=== PATIENT | male | born 2000 | race Caucasian/White ===

== ENCOUNTER 2022-02-21 10:44 | Inpatient (IN) ==
[2022-02-21] MEDS ORDERED: ALBUT/IPRATROP 3MG/0.5MG NEB 3 ML VIAL NEB STA (11:19)
[2022-02-21] MEDS ORDERED: ALBUTEROL 0.083% NEBU SOLN 3 ML VIAL NEB STA (11:25)
--- NOTE | 2022-02-21 11:25 | Emergency Department Note ---
History of Present Illness General Chief complaint: Congestion Stated complaint: COUGH, CONGESTED Time Seen by Provider: 02/21/22 11:10 History of Present Illness Maximum Pain Intensity: 0 This is a 21-year-old male that presents to the emergency department via private vehicle with complaints of "cough, congested". Patient notes that about 2-1/2 weeks ago he began with a cough. He notes that he was sick at that time and then presented to [facility]. He was diagnosed with pneumonia and prescribed amoxicillin. He was also given Tessalon Perles and albuterol inhaler. 3 to 4 days pasted since that visit and he notes continuation of symptoms therefore prompting a visit here to the emergency department. He was seen here on 02/10. He states that he was diagnosed with a viral URI/bronchitis and started on steroids as well as an inhaler. He was using this and feeling well. Then a few days ago he notes return of symptoms to include congestion, cough and since yesterday now notes pain to the right lateral inferior rib region that is worse with a deep breath/cough. Patient denies any known trauma or injury. No sore throat. Home Medications Medication Instructions Recorded Confirmed Type No Known Home Medications 02/21/22 02/21/22 History Allergies Allergy/AdvReac Type Severity Reaction Status Date / Time No Known Allergies Allergy Verified 02/21/22 14:49 Past Med/Surg History Medical History No significant past medical history Surgical History Hx of shoulder surgery Social History Smoking Status: Never smoker Preferred Language: Occitan marital status: Single current occupational status: student Feels Safe at Home: Yes Review of Systems A total of 10 systems reviewed and were otherwise negative Physical Exam Vital Signs Vital Signs - 24 hr 02/21/22 11:03 02/21/22 11:19 02/21/22 11:44 Temperature 37.3 C Temperature Source Oral Pulse Rate 104 H 94 H 96 H Pulse Rate [Apical] Pulse Rate [Exercises] Pulse Rate [Recovery] Pulse Rate [Resting] Pulse Rate from SpO2 Sensor 95 H Pulse Rhythm Regular Pulse Rhythm [Apical] Pulse Strength [Apical] Respiratory Rate 18 19 25 H Respiratory Rate [Exercises] Respiratory Rate [Recovery] Respiratory Rate [Resting] Respiratory Effort / Characteristics Non-Labored Spontaneous Respiratory Depth Normal Respiratory Pattern Regular Blood Pressure 122/68 Blood Pressure [Left Arm] Blood Pressure Mean 86 Blood Pressure Mean [Left Arm] Blood Pressure Position Sitting Blood Pressure Position [Left Arm] Pulse Oximetry 99 96 97 Pulse Oximetry [Exercises] Pulse Oximetry [Recovery] Pulse Oximetry [Resting] Oxygen Delivery Method Room Air Room Air Sepsis Recent Fever Within 48 Hours No Sepsis New/Unexplained Change in Mental Status N/A Sepsis Action Taken by Nursing No Action Required 02/21/22 10:44 02/21/22 12:00 02/21/22 12:00 Temperature Temperature Source Pulse Rate 94 H Pulse Rate [Apical] 98 H Pulse Rate [Exercises] Pulse Rate [Recovery] Pulse Rate [Resting] Pulse Rate from SpO2 Sensor 95 H Pulse Rhythm Pulse Rhythm [Apical] Regular Pulse Strength [Apical] Normal Respiratory Rate 19 19 Respiratory Rate [Exercises] Respiratory Rate [Recovery] Respiratory Rate [Resting] Respiratory Effort / Characteristics Non-Labored Respiratory Depth Normal Respiratory Pattern Regular Blood Pressure 116/71 Blood Pressure [Left Arm] 116/71 Blood Pressure Mean 86 Blood Pressure Mean [Left Arm] 86 Blood Pressure Position Blood Pressure Position [Left Arm] Lying Pulse Oximetry 98 100 Pulse Oximetry [Exercises] Pulse Oximetry [Recovery] Pulse Oximetry [Resting] Oxygen Delivery Method Room Air Sepsis Recent Fever Within 48 Hours Sepsis New/Unexplained Change in Mental Status Sepsis Action Taken by Nursing 02/21/22 12:30 02/21/22 12:30 02/21/22 13:35 Temperature Temperature Source Pulse Rate 95 H Pulse Rate [Apical] Pulse Rate [Exercises] 114 H Pulse Rate [Recovery] 96 H Pulse Rate [Resting] 111 H Pulse Rate from SpO2 Sensor 97 H Pulse Rhythm Pulse Rhythm [Apical] Pulse Strength [Apical] Respiratory Rate 18 Respiratory Rate [Exercises] 27 H Respiratory Rate [Recovery] 24 Respiratory Rate [Resting] 26 H Respiratory Effort / Characteristics Respiratory Depth Respiratory Pattern Blood Pressure 127/70 Blood Pressure [Left Arm] Blood Pressure Mean 89 Blood Pressure Mean [Left Arm] Blood Pressure Position Blood Pressure Position [Left Arm] Pulse Oximetry 97 Pulse Oximetry [Exercises] 96 Pulse Oximetry [Recovery] 95 Pulse Oximetry [Resting] 96 Oxygen Delivery Method Room Air Sepsis Recent Fever Within 48 Hours Sepsis New/Unexplained Change in Mental Status Sepsis Action Taken by Nursing 02/21/22 13:22 02/21/22 13:22 02/21/22 13:30 Temperature Temperature Source Pulse Rate 98 H Pulse Rate [Apical] Pulse Rate [Exercises] Pulse Rate [Recovery] Pulse Rate [Resting] Pulse Rate from SpO2 Sensor Pulse Rhythm Pulse Rhythm [Apical] Pulse Strength [Apical] Respiratory Rate 18 Respiratory Rate [Exercises] Respiratory Rate [Recovery] Respiratory Rate [Resting] Respiratory Effort / Characteristics Respiratory Depth Respiratory Pattern Blood Pressure 117/71 124/71 Blood Pressure [Left Arm] Blood Pressure Mean 86 88 Blood Pressure Mean [Left Arm] Blood Pressure Position Blood Pressure Position [Left Arm] Pulse Oximetry Pulse Oximetry [Exercises] Pulse Oximetry [Recovery] Pulse Oximetry [Resting] Oxygen Delivery Method Sepsis Recent Fever Within 48 Hours Sepsis New/Unexplained Change in Mental Status Sepsis Action Taken by Nursing 02/21/22 13:30 02/21/22 14:00 02/21/22 14:00 Temperature Temperature Source Pulse Rate 92 H 96 H Pulse Rate [Apical] Pulse Rate [Exercises] Pulse Rate [Recovery] Pulse Rate [Resting] Pulse Rate from SpO2 Sensor Pulse Rhythm Pulse Rhythm [Apical] Pulse Strength [Apical] Respiratory Rate 18 20 Respiratory Rate [Exercises] Respiratory Rate [Recovery] Respiratory Rate [Resting] Respiratory Effort / Characteristics Respiratory Depth Respiratory Pattern Blood Pressure 119/69 Blood Pressure [Left Arm] Blood Pressure Mean 85 Blood Pressure Mean [Left Arm] Blood Pressure Position Blood Pressure Position [Left Arm] Pulse Oximetry 97 96 Pulse Oximetry [Exercises] Pulse Oximetry [Recovery] Pulse Oximetry [Resting] Oxygen Delivery Method Sepsis Recent Fever Within 48 Hours Sepsis New/Unexplained Change in Mental Status Sepsis Action Taken by Nursing VITAL SIGNS - Vital signs and nursing notes were reviewed. Stable and afebrile. GENERAL -21-year-old male appearing his stated age who is in no acute distress. Communicates well with provider and answers questions appropriately. SKIN - Without rashes. No meningeal or petechial rash. HEAD - NC/AT. EYES - PERRL with EOMI bilaterally. Sclera anicteric. EARS - No deformities of external structures noted on gross examination bilaterally. No pain elicited with palpation of the tragus bilaterally. External auditory canals without discharge or otorrhea. Tympanic membranes pearly chan without retraction or bulging. No fluid or purulent material visualized behind the TM. Handle of malleus, umbo, cone of light, pars tensa/flaccid all easily visualized. NOSE - Midline and without cyanosis. No epistaxis or purulent drainage noted. Septum midline without deviation or septal hematoma noted. MOUTH/OROPHARYNX - Without perioral cyanosis. Buccal mucosa pink and moist and without leukoplakia. Tongue midline with equal elevation of palate bilaterally. No tonsillar hypertrophy, erythema, or exudates noted. Good dentition noted. NECK - Neck with FROM. No nuchal rigidity. LUNGS - Chest wall symmetric without accessory muscle use, intercostals retractions, or central cyanosis. Normal vesicular breath sounds CTA B/L. No wheezes, rales, or rhonchi appreciated. CARDIAC - RRR with S1/S2. No murmur, rubs, or gallops appreciated. ABDOMEN - Abdominal contour normal without pulsations or visible masses. BS normoactive all four quadrants. No tenderness, palpable masses, hepatosplenomegaly, or ascites noted. EXTREMITIES - No clubbing or peripheral cyanosis. +5/5 strength noted in UE/LE bilaterally. NEUROLOGIC - Cranial nerves II through XII grossly intact. PSYCH - A&O, and cooperates fully with examiner. Pt is very pleasant and interacts well with examiner. Course Administered Medications Discontinued Medications Albuterol (Albut/Ipratrop 3mg/0.5mg Neb 3 Ml Vial) 3 ml NEB NOW STA; Protocol Stop: 02/21/22 11:20 Last Admin: 02/21/22 11:29 Dose: Not Given Documented By: ROLAND Albuterol (Albuterol 0.083% Nebu Soln 3 Ml Vial) 2.5 mg NEB NOW STA; Protocol Stop: 02/21/22 11:26 Last Admin: 02/21/22 11:35 Dose: 2.5 mg Documented By: ROLAND Ampicillin Sodium/Sulbactam Sodium 3,000 mg/ Sodium Chloride 108 mls @ 200 mls/hr IV NOW STA; Protocol Stop: 02/21/22 15:19 Last Admin: 02/21/22 15:42 Dose: 200 mls/hr Documented By: ROLAND Ioversol (Optiray 320 500ml) 107 ml IV ONCE ONE Stop: 02/21/22 13:03 Last Admin: 02/21/22 13:03 Dose: 107 ml Documented By: CLAU Medical Decision Making Laboratory Data Result diagrams: 02/21/22 11:44 02/21/22 11:44 Lab Results 02/21/22 02/21/22 02/21/22 Range/Units 11:44 11:44 11:44 WBC 18.67 H (4.8-10.8) K/ul RBC 4.57 L (4.63-6.08) M/uL Hgb 14.6 (14.0-18.0) g/dl Hct 42.0 (40.1-51.0) % MCV 91.9 (80.0-100.0) fL MCH 31.9 (25.0-34.0) pg MCHC 34.8 (32.0-36.0) g/dL RDW Std Deviation 41.4 (36.4-46.3) fL RDW Coeff of Kj 12.3 (11.5-14.5) % Plt Count 321 (130-400) K/uL MPV 9.2 L (9.4-12.4) fL Immature Gran % (Auto) 0.6 % Neut % (Auto) 86.7 % Lymph % (Auto) 7.3 % Charles % (Auto) 5.1 % Eos % (Auto) 0.1 % Baso % (Auto) 0.2 % Neut # (Auto) 16.19 H (1.4-6.5) K/uL Lymph # (Auto) 1.36 (1.2-3.4) K/uL Charles # (Auto) 0.95 H (0.24-0.82) K/uL Eos # (Auto) 0.02 (0-0.50) K/uL Baso # (Auto) 0.04 (0-0.2) K/uL Immature Gran # (Auto) 0.11 H (0.00-0.02) K/uL PT 11.8 (9.0-12.0) Seconds INR 1.1 (0.9-1.1) APTT 35.4 H (21.0-31.0) Seconds PTT Ratio 1.3 Sodium 135 L (136-145) mmol/L Potassium 4.1 (3.5-5.1) mmol/L Chloride 99 (98-107) mmol/L Carbon Dioxide 29 (21-32) mmol/L Anion Gap 7 (3-11) BUN 10 (6-23) mg/dl Creatinine 0.89 (0.6-1.4) mg/dl Est Cr Clr Drug Dosing 146.5 ml/min Est GFR ( Amer) 143.7 ml/min Est GFR (Non-Af Amer) 124.0 ml/min BUN/Creatinine Ratio 11.2 (10-20) Glucose 104 H (70-99(Fasting)) mg/dl Calcium 9.6 (8.5-10.1) mg/dl Total Bilirubin 0.8 (0.2-1.0) mg/dl AST 21 (13-39) U/L ALT 30 (7-52) U/L Alkaline Phosphatase 81 (34-104) U/L Troponin I High Sens 3.6 (0-20) pg/ml Total Protein 7.5 (6.0-8.3) gm/dl Albumin 4.0 (3.4-5.0) gm/dl Globulin 3.5 (2.5-4.0) gm/dl Albumin/Globulin Ratio 1.1 (0.9-2) Adenovirus (PCR) (NotDetected) B. pertussis DNA (PCR) (NotDetected) B.parapertussis DNA PCR (NotDetected) C. pneumoniae DNA (PCR) (NotDetected) Coronavirus OC43 (PCR) (NotDetected) Coronavirus HKU1 (PCR) (NotDetected) Coronavirus 229E (PCR) (NotDetected) SARS-CoV-2 (PCR) (NotDetected) Coronavirus NL63 (PCR) (NotDetected) Human Metapneumovir PCR (NotDetected) Influenza Type A (PCR) (NotDetected) Influenza Type B (PCR) (NotDetected) M. pneumoniae (PCR) (NotDetected) Parainfluenza 1 (PCR) (NotDetected) Parainfluenza 2 (PCR) (NotDetected) Parainfluenza 3 (PCR) (NotDetected) Parainfluenza 4 (PCR) (NotDetected) RSV (PCR) (NotDetected) Entero/Rhino (PCR) (NotDetected) 02/21/22 Range/Units 11:46 WBC (4.8-10.8) K/ul RBC (4.63-6.08) M/uL Hgb (14.0-18.0) g/dl Hct (40.1-51.0) % MCV (80.0-100.0) fL MCH (25.0-34.0) pg MCHC (32.0-36.0) g/dL RDW Std Deviation (36.4-46.3) fL RDW Coeff of Kj (11.5-14.5) % Plt Count (130-400) K/uL MPV (9.4-12.4) fL Immature Gran % (Auto) % Neut % (Auto) % Lymph % (Auto) % Charles % (Auto) % Eos % (Auto) % Baso % (Auto) % Neut # (Auto) (1.4-6.5) K/uL Lymph # (Auto) (1.2-3.4) K/uL Charles # (Auto) (0.24-0.82) K/uL Eos # (Auto) (0-0.50) K/uL Baso # (Auto) (0-0.2) K/uL Immature Gran # (Auto) (0.00-0.02) K/uL PT (9.0-12.0) Seconds INR (0.9-1.1) APTT (21.0-31.0) Seconds PTT Ratio Sodium (136-145) mmol/L Potassium (3.5-5.1) mmol/L Chloride (98-107) mmol/L Carbon Dioxide (21-32) mmol/L Anion Gap (3-11) BUN (6-23) mg/dl Creatinine (0.6-1.4) mg/dl Est Cr Clr Drug Dosing ml/min Est GFR ( Amer) ml/min Est GFR (Non-Af Amer) ml/min BUN/Creatinine Ratio (10-20) Glucose (70-99(Fasting)) mg/dl Calcium (8.5-10.1) mg/dl Total Bilirubin (0.2-1.0) mg/dl AST (13-39) U/L ALT (7-52) U/L Alkaline Phosphatase (34-104) U/L Troponin I High Sens (0-20) pg/ml Total Protein (6.0-8.3) gm/dl Albumin (3.4-5.0) gm/dl Globulin (2.5-4.0) gm/dl Albumin/Globulin Ratio (0.9-2) Adenovirus (PCR) Not Detected (NotDetected) B. pertussis DNA (PCR) Not Detected (NotDetected) B.parapertussis DNA PCR Not Detected (NotDetected) C. pneumoniae DNA (PCR) Not Detected (NotDetected) Coronavirus OC43 (PCR) Not Detected (NotDetected) Coronavirus HKU1 (PCR) Not Detected (NotDetected) Coronavirus 229E (PCR) Not Detected (NotDetected) SARS-CoV-2 (PCR) Not Detected (NotDetected) Coronavirus NL63 (PCR) Not Detected (NotDetected) Human Metapneumovir PCR Not Detected (NotDetected) Influenza Type A (PCR) Not Detected (NotDetected) Influenza Type B (PCR) Not Detected (NotDetected) M. pneumoniae (PCR) Not Detected (NotDetected) Parainfluenza 1 (PCR) Not Detected (NotDetected) Parainfluenza 2 (PCR) Not Detected (NotDetected) Parainfluenza 3 (PCR) Not Detected (NotDetected) Parainfluenza 4 (PCR) Not Detected (NotDetected) RSV (PCR) Not Detected (NotDetected) Entero/Rhino (PCR) Not Detected (NotDetected) Imaging Data Radiologist's Impression: Chest CTA 02/21/22 11:19 CT ANGIOGRAM OF THE CHEST CLINICAL HISTORY: Cough. Right-sided chest wall pain. Tachycardia. COMPARISON STUDY: Chest x-ray dated 02/10/2022. TECHNIQUE: Following the IV administration of 107 cc of Optiray 320, CT angiogram of the chest was performed from the upper abdomen to the thoracic inlet utilizing the pulmonary embolus protocol. Images are reviewed in the axial, sagittal, and coronal planes. 3-D MIPS images are created and assessed. IV contrast was administered without complication. A dose lowering technique was utilized adhering to the principles of ALARA. The examination is degraded by motion artifact. CT DOSE: 405.58 mGy.cm FINDINGS: Thyroid: Imaged portions of the thyroid gland are normal in size and attenuation. Thoracic aorta: The thoracic aorta is normal in caliber and demonstrates standard 3-vessel arch anatomy. No dissection is seen. Pulmonary vasculature: The pulmonary trunk is normal in caliber. There are no filling defects identified in main, lobar, or proximal segmental pulmonary branches to suggest pulmonary embolus. Evaluation of the segmental and subsegmental branches is degraded by motion artifact. Heart: The heart is normal in size and without pericardial effusion. Lungs and pleural spaces: The trachea is clear. Secretions/debris fills the right lower lobe airways. There is dense right lower lobe airspace consolidation. The right middle and upper lobes are clear. Secretions/debris are also seen in the left lower lobe airways and there are is minimal left basilar consolidation. No pleural effusion is identified Mediastinum: There is no mediastinal lymphadenopathy. Pauly: There are mildly enlarged right hilar lymph nodes which measure up to 11 mm in short axis. Axillae: There is no axillary lymphadenopathy. Upper abdomen: Partially visualized upper abdominal viscera is within normal limits. Skeletal structures: No lytic or blastic bony lesions are seen. IMPRESSION: 1. There is no evidence of pulmonary embolus in the main, lobar, or segmental pulmonary arteries. 2. There is dense airspace consolidation in the right lower lobe, as well as minimal dependent consolidative change at the left lung base. There are secretions/debris within the lower lobe airways bilaterally, right significantly greater than left. The appearance is typical for pneumonia/aspiration pneumoni tis. Clinical correlation will be required and radiographic follow-up to resolution is recommended. 3. No pleural effusion is seen. 4. Mildly enlarged right hilar lymph nodes are likely reactive. ACT 112: Negative or not required by law. Electronically signed by: Cortes Velez M.D. 02/21/2022 1:23 PM [facility] Narrative Patient was seen and evaluated as above in room B11. Review was performed of nursing notes and vital signs. I did review pertinent previous visits and patient history. After obtaining a thorough history and physical examination the above work up was performed. Patient presents to us today for evaluation of cough, right-sided rib pain that is worse with a deep breath. He clinically appears well and nontoxic. He is mildly tachycardic on arrival. Patient notes that he began with similar symptoms about 2 and half weeks ago and was initially on amoxicillin but then seen here on 02/10 and diagnosed with a viral infection and placed on steroids and albuterol inhaler. While on the steroids he felt well and had resolution of symptoms. However, over the past few days symptoms have returned and now since last night he notes right lateral inferior rib pain that is worse with a deep breath and cough. No signs of meningitis or encephalitis on examination. Options of care were discussed with the patient. IV access was established. Labs were drawn. Given the patient's focal right lateral inferior rib pain in the setting of recent illness, cough, pain with inspiration as well as tachycardia here it was felt that further work-up to rule out PE is reasonable. It is felt that the benefit outweighs risk. Patient was medicated with albuterol neb pending work-up as he notes that seemed helpful on his previous visit. Labs reveal leukocytosis 18.67. No anemia. Mild hyponatremia 135. Troponin is within normal range. Bio fire viral testing negative. CT scan of the chest was felt to be warranted noting presentation with results as above. Patient has no evidence of PE. There is however dense airspace consolidation in the right lower lobe as well as mild change on the left. There is comment of secretions/debris within the lower lobe bilaterally right greater than left. Ambulatory pulse ox completed and he maintained 96% on room air. Noting the patient's symptoms I did find it reasonable to discuss this with the on-call tower helper, Dr. Gutiérrez. We reviewed the case. Inpatient management recommended which I believe is reasonable. IV Unasyn also recommended and felt to be reasonable. I reviewed this with the patient. Patient amenable to plan of care. I then discussed this with Dr. Alex, hospitalist. Patient will be admitted for further evaluation and management. I did offer to discuss today's findings with the patient's parents. Patient called his dad and we spoke on speaker phone. This was after obtaining consent. All questions answered. Patient and father happy with plan of care. Case was discussed with the attending physician. EKG was reviewed by myself and found to be Normal Sinus Rhythm at a rate of 97 beats per minute and per my interpretation reveals no ST elevation. QTc 406. QRS 100. No previous for comparison at time of dictation. GCS: 15 In the evaluation and treatment of this patient the following differential diagnoses were entertained: HI, PE, pneumonia, aspiration, necrotic lung, dissection, among others. Impression & Plan Pneumonia, Cough, Abnormal chest CT, Rib pain on right side Discharge Plan Visit Data Chief Complaint: Congestion Stated Complaint: COUGH, CONGESTED ED Provider: Fady Galarza ED Midlevel Provider: Elvin Rowe Discharge Problem: Pneumonia, Cough, Abnormal chest CT, Rib pain on right side Patient Disposition: Admitted As Inpatient Condition: Good Forms Stand Alone Forms: [employer] Prescriptions Prescriptions: No Action No Known Home Medications Referrals Referrals: [facility] [Primary Care Provider] -
[2022-02-21 11:58] LABS: Basophils # (auto) 0.04 K/uL (0-0.2); Basophils % (auto) 0.2 %; Eosinophils # (auto) 0.02 K/uL (0-0.50); Eosinophils % (auto) 0.1 %; Hemoglobin 14.6 g/dl (14.0-18.0); Immature Granulocytes # (auto) 0.11 K/uL (0.00-0.02); Immature Granulocytes % (auto) 0.6 %; Lymphocytes # (auto) 1.36 K/uL (1.2-3.4); Lymphocytes % (auto) 7.3 %; Mean Corpuscular Hemoglobin 31.9 pg (25.0-34.0); Mean Corpuscular Hgb Conc 34.8 g/dL (32.0-36.0); Mean Corpuscular Volume 91.9 fL (80.0-100.0); Mean Platelet Volume 9.2 fL (9.4-12.4); Monocytes # (auto) 0.95 K/uL (0.24-0.82); Monocytes % (auto) 5.1 %; Neutrophils # (auto) 16.19 K/uL (1.4-6.5); Neutrophils % (auto) 86.7 %; Platelet Count 321 K/uL (130-400); RDW Coefficient of Variation 12.3 % (11.5-14.5); RDW Standard Deviation 41.4 fL (36.4-46.3); Red Blood Count 4.57 M/uL (4.63-6.08); White Blood Count 18.67 K/ul (4.8-10.8)
[2022-02-21 12:20] LABS: Albumin Globulin Ratio 1.1 (0.9-2); BUN Creatinine Ratio 11.2 (10-20); Bilirubin,Total 0.8 mg/dl (0.2-1.0); Calcium 9.6 mg/dl (8.5-10.1); Creatinine Clr Calc Pharmacy 146.5 ml/min; Est GFR (African American) 143.7 ml/min; Globulin 3.5 gm/dl (2.5-4.0); Potassium 4.1 mmol/L (3.5-5.1); Total Protein 7.5 gm/dl (6.0-8.3)
[2022-02-21 12:21] LABS: INR 1.1 (0.9-1.1); Partial Thromboplastin Ratio 1.3; Partial Thromboplastin Time 35.4 Seconds (21.0-31.0); Prothrombin Time 11.8 Seconds (9.0-12.0)
[2022-02-21 12:26] LABS: Troponin I High Sensitivity 3.6 pg/ml (0-20)
[2022-02-21 12:55] LABS: Adenovirus PCR Not Detected (NotDetected); Bordetella parapertussis PCR Not Detected (NotDetected); Bordetella pertussis PCR Not Detected (NotDetected); Chlamydia pneumoniae PCR Not Detected (NotDetected); Coronavirus 229E PCR Not Detected (NotDetected); Coronavirus CoV-2 (COVID19)PCR Not Detected (NotDetected); Coronavirus HKU1 PCR Not Detected (NotDetected); Coronavirus NL63 PCR Not Detected (NotDetected); Coronavirus OC43PCR Not Detected (NotDetected); Human Metapneumovirus PCR Not Detected (NotDetected); Influenza A PCR Not Detected (NotDetected); Influenza B PCR Not Detected (NotDetected); Mycoplasma pneumoniae PCR Not Detected (NotDetected); Parainfluenza Virus 1 PCR Not Detected (NotDetected); Parainfluenza Virus 2 PCR Not Detected (NotDetected); Parainfluenza Virus 3 PCR Not Detected (NotDetected); Parainfluenza Virus 4 PCR Not Detected (NotDetected); Respiratory Syncytial VirusPCR Not Detected (NotDetected); Rhinovirus/Enterovirus PCR Not Detected (NotDetected)
[2022-02-21] MEDS ORDERED: OPTIRAY 320 500ml IV ONE (13:02)
--- NOTE | 2022-02-21 13:25 | CT Scan Report ---
CT ANGIOGRAM OF THE CHEST CLINICAL HISTORY: Cough. Right-sided chest wall pain. Tachycardia. COMPARISON STUDY: Chest x-ray dated 02/10/2022. TECHNIQUE: Following the IV administration of 107 cc of Optiray 320, CT angiogram of the chest was pe rformed from the upper abdomen to the thoracic inlet utilizing the pulmonary embolus protocol. Images are reviewed in the axial, sagittal, and coronal planes. 3-D MIPS images are created and assessed. I V contrast was administered without complication. A dose lowering technique was utilized adhering to the principles of ALARA. The examination is degraded by motion artifact. CT DOSE: 405.58 mGy.cm FINDINGS: Thyroid: Imaged portions of the thyroid gland are normal in size and attenuation. Thoracic aorta: The thoracic aorta is normal in caliber and demonstrates standard 3-vessel arch anato my. No dissection is seen. Pulmonary vasculature: The pulmonary trunk is normal in caliber. There are no filling defects identif ied in main, lobar, or proximal segmental pulmonary branches to suggest pulmonary embolus. Evaluation of the segmental and subsegmental branches is degraded by motion artifact. Heart: The heart is normal in size and without pericardial effusion. Lungs and pleural spaces: The trachea is clear. Secretions/debris fills the right lower lobe airways. There is dense right lower lobe airspace consolidation. The right middle and upper lobes are clear. Secretions/debris are also seen in the left lower lobe airways and there are is minimal left basilar consolidation. No pleural effusion is identified Mediastinum: There is no mediastinal lymphadenopathy. Pauly: There are mildly enlarged right hilar lymph nodes which measure up to 11 mm in short axis. Axillae: There is no axillary lymphadenopathy. Upper abdomen: Partially visualized upper abdominal viscera is within normal limits. Skeletal structures: No lytic or blastic bony lesions are seen. IMPRESSION: 1. There is no evidence of pulmonary embolus in the main, lobar, or segmental pulmonary arteries. 2. There is dense airspace consolidation in the right lower lobe, as well as minimal dependent consol idative change at the left lung base. There are secretions/debris within the lower lobe airways bilat erally, right significantly greater than left. The appearance is typical for pneumonia/aspiration pne umonitis. Clinical correlation will be required and radiographic follow-up to resolution is recommend ed. 3. No pleural effusion is seen. 4. Mildly enlarged right hilar lymph nodes are likely reactive. ACT 112: Negative or not required by law. Electronically signed by: Cortes Velez M.D. 02/21/2022 1:23 PM
[2022-02-21] MEDS ORDERED: AMPICILLIN/SULBACTAM SOD 3,000 MG in 0.9 % SODIUM CHLORIDE 100 ML IV STA (14:47)
--- NOTE | 2022-02-21 15:03 | History & Physical Report ---
Date of Service February 21, 2022 Assessment & Plan (1) Pneumonia: Plan: 21 yo male being admitted with a pneumonia. Patient will be admitted with unasyn. will obtain sputum culture, blood culture. consult pulmonary, given extensive pneumonia on CT scan. concern over possible necrotizing pneumonia. monitor vital signs, monitor clinical evolution. Plan No DVT prophylaxis as patient is ambulating History of Present Illness Chief Complaint: right sided chest pain Primary Care Provider: [facility] 21 yo male being admitted with a 2 and a half week history of upper respiratory illness. Patient reports this began with generalized malaise, rhinorrhea, cough that did not improve over the next few days. Patient went to see an Urgent Care Clinic and was told to have a community acquired pneumonia. Patient treated with amoxicillin, and he did not improve over the course of the next few days. Patient was then seen in the ER and had a negative chest x ray, with normal vital signs and on room air. He was discharged on corticosteroids. Patient did nto improve, and then over past 2 days had right sided chest pain, worsening with deep inspiration. Images showed Right lower lobe pneumonia: concern over possible necrosis. Allergies Allergy/AdvReac Type Severity Reaction Status Date / Time No Known Allergies Allergy Verified 02/21/22 14:49 Home Medications Medication Instructions Recorded Confirmed Type No Known Home Medications 02/21/22 02/21/22 History Past Med/Surg History Medical History No significant past medical history Surgical History Hx of shoulder surgery Social History Smoking Status: Never smoker Second Hand Exposure: No; Do You Dip or Chew Tobacco: No; Tobacco Cessation Education Requested by Patient: No Hx Alcohol Use: No Hx Substance Use: Yes Last Used Substance: Days (ago) Last Used Substance Other:: Two weeks ago Preferred Language: Nigerian Communication Ability: Effective 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 Beliefs That Will Affect Care: None marital status: Single Current Living Situation: Other Current Living Situation Comment: Lives off campus in house with 6 other [employer] students current occupational status: student Other Information That Helps Us Care for You: No Feels Safe at Home: Yes Safety Concerns: Feels Safe At This Time Review of Systems Constitutional: + fever, + body aches, + fatigue and + malaise Eyes: no blind spots and no discharge Ear, Nose, Mouth, Throat: no ear pain Respiratory: + cough, + dyspnea and + pain on inspiration Cardiovascular: + chest pain Gastrointestinal: no abdominal pain Genitourinary: no dysuria Musculoskeletal: no back pain Integumentary: no acne Neurologic: no gait abnormality Psychiatric: no behavioral changes Endocrine: + fatigue Hematologic / Lymphatic: no easy bleeding Allergy / Immunological: no GI upset with certain foods Physical Exam Constitutional: WD/WN, vitals as above Eyes: PERRL, conjunctivae normal, anicteric sclerae ENMT: external ear and nose normal, oropharynx normal Neck: trachea midline, no thyromegaly Respiratory: normal respiratory effort and able to speak in complete sentences Auscultation: + diminished lung sounds (on right lower lung donaldson) Cardiovascular: RRR, no murmur, no edema Gastrointestinal (Abdomen): normal bowel sounds, soft, nontender, no hepatosplenomegaly Musculoskeletal: no cyanosis or clubbing, extremities motor strength 5/5 Skin: no rashes, warm and dry Neurologic: PERRL, EOMI, accommodation nl, no face palsy, no dysarthria Psychiatric: A+Ox3, euthymic affect Lymphatic: no cervical or axillary lymphadenopathy Results & Data Results & Data ([facility]) Vital Signs (Past 12 Hours) Vital Signs Temp Pulse Pulse Pulse Pulse Pulse Resp 02/21/22 14:00 96 H 20 02/21/22 14:00 02/21/22 13:30 92 H 18 02/21/22 13:30 02/21/22 13:22 02/21/22 13:22 98 H 18 02/21/22 13:35 114 H 96 H 111 H 02/21/22 12:30 95 H 18 02/21/22 12:30 02/21/22 12:00 94 H 19 02/21/22 12:00 02/21/22 10:44 98 H 19 02/21/22 11:44 96 H 25 H 02/21/22 11:19 94 H 19 02/21/22 11:03 37.3 C 104 H 18 Resp Resp Resp BP BP Pulse Ox Pulse Ox 02/21/22 14:00 96 02/21/22 14:00 119/69 02/21/22 13:30 97 02/21/22 13:30 124/71 02/21/22 13:22 117/71 02/21/22 13:22 02/21/22 13:35 27 H 24 26 H 96 02/21/22 12:30 97 02/21/22 12:30 127/70 02/21/22 12:00 100 02/21/22 12:00 116/71 02/21/22 10:44 116/71 98 02/21/22 11:44 97 02/21/22 11:19 96 02/21/22 11:03 122/68 99 Pulse Ox Pulse Ox O2 Del Method 02/21/22 14:00 02/21/22 14:00 02/21/22 13:30 02/21/22 13:30 02/21/22 13:22 02/21/22 13:22 02/21/22 13:35 95 96 Room Air 02/21/22 12:30 02/21/22 12:30 02/21/22 12:00 02/21/22 12:00 02/21/22 10:44 Room Air 02/21/22 11:44 02/21/22 11:19 Room Air 02/21/22 11:03 Room Air PG Care Time/CCT Total # of Minutes Spent Total Time Spent with Patient: Total time spent is greater than 50% in coordination of care (as documented) at patient's floor/unit and/or counseling patient: Coding Level of Care Code 65311 Initial Inpt Care Lvl 3 Diagnoses Pneumonia J18.9
[2022-02-21] MEDS ORDERED: ACETAMINOPHEN 325 MG TAB PO PRN (15:04)
--- NOTE | 2022-02-21 15:52 | Electrocardiogram Report ---
Test Reason : Blood Pressure : / mmHG Vent. Rate : 097 BPM Atrial Rate : 097 BPM P-R Int : 150 ms QRS Dur : 100 ms QT Int : 320 ms P-R-T Axes : 056 091 039 degrees QTc Int : 406 ms Normal sinus rhythm Rightward axis Borderline ECG No previous ECGs available Confirmed by Solo Ryan ([id number]) on 02/21/2022 3:51:55 PM Referred By: REFERRED SELF Confirmed By:Solo Ryan
[2022-02-21] MEDS ORDERED: FLUARIX QUADRIVALENT 0.5 ML SYR IM ONE (18:00)
[2022-02-21] MEDS: AMPICILLIN/SULBACTAM SOD 3,000 MG in 0.9 % SODIUM CHLORIDE 100 ML IV SCH (20:18)
[2022-02-21 20:20] LABS: Appearance Urine Clear (Clear); Bilirubin Urine Negative (Negative); Blood Urine Negative (Negative); Color Urine Yellow; Glucose Urine UA Negative (Negative); Ketones Urine Negative (Negative); Leukocyte Esterase Urine Negative (Negative); Nitrite Urine Negative (Negative); Protein Urine Negative (Negative); Specific Gravity Urine 1.008 (1.000-1.030); Urobilinogen Urine Negative (Negative); pH Urine 7.5 (4.5-7.5)
[2022-02-22] MEDS: AMPICILLIN/SULBACTAM SOD 3,000 MG in 0.9 % SODIUM CHLORIDE 100 ML IV SCH ×4 (02:23→20:07)
--- NOTE | 2022-02-22 07:30 | Hospitalist Progress Note ---
Date of Service February 22, 2022 Assessment & Plan (1) Pneumonia: Plan: 21 yo M with no significant PMH admitted for worsening cough with associated R chest pain. Community acquired bacterial pneumonia -WBC 18.7 on admission, downtrend to 15.5 -CRP 24, procalcitonin 0.2 (procalcitonin collected after abx administration), UA negative -CXR- negative for acute process -Chest CTA- dense airspace consolidation of R lower lobe, minimal consolidative change at L base, secretions/debris in lower lobe airways b/l R > L -Sputum cultures, BCx pending, RVP negative -Suspect non-necrotizing community acquired vs aspiration pneumonia -Continue Unasyn from admission, added azithromycin 500 mg daily for atypical coverage including Legionella -Pulmonology consulted -Supportive care with hypertonic saline BID -Recommend 7-10 days of abx- transition to Augmentin when appropriate -Currently day 2 of abx -No need for bronchoscopy at present -Recommend repeat chest CT in 1 month FENGI: Regular Code status: Full DVT ppx: Ambulation, low-risk Isolation: None Dispo: Medical/surgical Admission and Anticipated Discharge Date Admission Date: February 21, 2022 Supervising Physician Co-Signing Physician Notes Resident Physician Supervision Note: I independently interviewed and examined the patient and verified the fernando history and physical, reviewed labs and image studies and agree with resident findings and care plan. Subjective No acute events overnight. Pt reports feeling well overall. Denies any dyspnea, fevers, chills. Does report some mild fatigue and productive cough though the cough frequency has decreased. Notes sensation of pressure in his ears has resolved. Review of Systems Review of Systems: Per subjective Physical Exam Physical Exam: Constitutional: No acute distress, laying in bed HEENT: Moist mucous membranes.Clear oropharynx without exudate. Tympanic membranes clearly visualized without any erythema or drainage noted in auditory canal Neck: Supple without lymphadenopathy or thyromegaly. Trachea midline Cardiac: RRR, normal S1 and S2, no murmurs Lungs: Largely clear to auscultation bilaterally, slightly diminished at R base, no overt wheezes or crackles noted Abdomen: Soft, nontender, and nondistended. Skin: +Sweaty, no rashes, warm Results & Data Results & Data ([facility]) Vital Signs (Past 12 Hours) Vital Signs Temp Pulse Resp BP Pulse Ox O2 Del Method 02/22/22 05:56 37.1 C 79 16 124/72 98 Room Air 02/21/22 21:32 37.1 C 85 16 120/77 95 Room Air 02/21/22 19:30 Room Air Resident Activity Tracking Resident Involvement: Resident Care Provided Care Provided: Adult Hospital Medicine
[2022-02-22 08:35] LABS: Basophils # (auto) 0.05 K/uL (0-0.2); Basophils % (auto) 0.3 %; Eosinophils # (auto) 0.06 K/uL (0-0.50); Eosinophils % (auto) 0.4 %; Hematocrit (blood only) 44.1 % (40.1-51.0); Hemoglobin 14.9 g/dl (14.0-18.0); Immature Granulocytes # (auto) 0.09 K/uL (0.00-0.02); Immature Granulocytes % (auto) 0.6 %; Lymphocytes # (auto) 1.77 K/uL (1.2-3.4); Lymphocytes % (auto) 11.4 %; Mean Corpuscular Hemoglobin 31.8 pg (25.0-34.0); Mean Corpuscular Hgb Conc 33.8 g/dL (32.0-36.0); Mean Platelet Volume 9.3 fL (9.4-12.4); Monocytes # (auto) 0.96 K/uL (0.24-0.82); Monocytes % (auto) 6.2 %; Neutrophils # (auto) 12.53 K/uL (1.4-6.5); Neutrophils % (auto) 81.1 %; Platelet Count 370 K/uL (130-400); RDW Coefficient of Variation 12.3 % (11.5-14.5); RDW Standard Deviation 42.6 fL (36.4-46.3); Red Blood Count 4.69 M/uL (4.63-6.08); White Blood Count 15.46 K/ul (4.8-10.8)
--- NOTE | 2022-02-22 08:49 | Pulmonary Consultation ---
Date of Consultation February 22, 2022 Assessment & Plan (1) Pneumonia: 21 yo male presented with worsening coughing and right-sided chest pain. Pneumonia R lower lobe -Appears to have CAP vs aspiration pneumonia -Elevated wbc, crp -Procal neg although has been on IV abx x1 day -Sputum and blood cx pending -Chest CT: shows dense airspace consolidation in the right lower lobe, as well as minimal dependent consolidative change at the left lung base. -Hypertonic saline neb to help with secretions -Continue Unasyn for now. Would recommend 10 days additional Augmentin as outpatient. -Will hold off on bronchoscopy at this time. Can reconsider if clinically regresses. -CT chest in 6 weeks to ensure resolution Thank you for allowing us to participate in the care of this patient. Please let us know if there are any further questions. Refer to my attending physician's documentation for any further recommendations. Supervising Physician Co-Signing Physician Notes Patient seen and examined with the resident physician. Agree with the note aside for any exceptions: Impression and plan 21-year-old male with no significant relevant history presenting with right lower lobe pneumonia likely secondary to aspiration. Other differentials include organizing pneumonia and less likely malignancy. Continue with Unasyn while inpatient and transition to Augmentin for 10 days once ready for discharge. I think he can safely be discharged home tomorrow. Hypertonic saline nebs ordered twice daily along with vest therapy 4 times a day to mobilize secretions. Discussed the plan with the patient and his mother at bedside. He is to have a chest x-ray completed in 2 weeks to follow-up on the pneumonia which I have placed an order for. I would also like him to have a CT of his chest without contrast in 6 weeks with a follow-up with me in the pulmonary clinic. This will be scheduled by my office staff. Physical exam Constitutional: Patient appears to be of their stated age. Patient is in no apparent distress. Patient is well-developed. Eyes: Pupils are equal round and reactive to light. Conjunctivae are normal. Anicteric sclera. Ears nose, mouth and throat: Mallampati class 1. Normal posterior oropharynx. Uvula is midline. Neck: Trachea is midline. Visual inspection is normal. Respiratory: Clear to auscultation bilaterally. No use of accessory muscles. No significant clubbing noted. Cardiovascular: Regular rate and rhythm. No murmurs. No edema. Gastrointestinal: Normal bowel sounds, soft, nontender and nondistended. No hepatosplenomegaly noted. Musculoskeletal: No cyanosis. Patient is able to move all extremities. Strength is 5 out of 5 in the upper and lower extremities. Skin: No rashes, warm dry and intact. Neurologic: No obvious focal neurological deficits seen. Psychiatric: Alert and oriented x3 with a euthymic affect. History of Present Illness Reason for Consultation: Pneumonia Attending Physician: Ale Huitron MD History of Present Illness 21-year-old male presented with worsening coughing and right-sided chest pain. 2-3 weeks ago he presented to urgent care with upper respiratory symptoms and was diagnosed with left-sided community-acquired pneumonia via x-ray and was treated with a course of an amoxicillin. After completion of antibiotics he did not feel much better so he went to the emergency room. At the ER a repeat chest x-ray showed no acute disease. He was discharged with a course of steroids for bronchitis. While on steroids he had resolution of symptoms, however, 2 days after completion of his steroid course his symptoms had returned with pain on the right side of his chest. Throughout illness he denies headaches, nausea, vomiting, abdominal pain, dysuria. No recent injury illness he has been oxygenating well and every checkup. He has felt some mild shortness of breath since his new onset of symptoms for the past week. He does admit to drinking alcohol. This past Monday he had about 8 drinks and took a nap for about an hour following but does say he was laying on recliner sitting up. Of note he does have a history of asthma in his childhood but has not been on any medications nor had any exacerbations for the past 10+ years. Allergies Allergy/AdvReac Type Severity Reaction Status Date / Time No Known Allergies Allergy Verified 02/21/22 14:49 Home Medications Medication Instructions Recorded Confirmed Type No Known Home Medications 02/21/22 02/21/22 History Patient History Medical History No significant past medical history Surgical History Hx of shoulder surgery Social History Smoking Status: Never smoker Second Hand Exposure: No; Do You Dip or Chew Tobacco: No; Tobacco Cessation Education Requested by Patient: No Hx Alcohol Use: No Hx Substance Use: Yes Last Used Substance: Days (ago) Last Used Substance Other:: Two weeks ago Preferred Language: Indian Communication Ability: Effective 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 Vitals as above. HEENT: Moist mucous membranes.Clear oropharynx without exudate. Neck: Supple without lymphadenopathy or thyromegaly. Trachea midline. Lungs: Mildly diminished breath sounds left lower lobe otherwise clear to auscultation bilaterally with good effort. No wheezes/rales/rhonchi. Cardiac: RRR. No murmurs. Abdomen: Bowel sounds present. Soft, nontender, and nondistended. MSK: No cyanosis or clubbing. Extremities motor strength 5/5. Skin: No rashes, warm, dry. Neurologic: No focal deficits. Results & Data Results & Data ([facility]) Vital Signs (Past 12 Hours) Vital Signs Temp Pulse Resp BP Pulse Ox O2 Del Method 02/22/22 05:56 37.1 C 79 16 124/72 98 Room Air 02/21/22 21:32 37.1 C 85 16 120/77 95 Room Air Laboratory Results Laboratory Results WBC 15.46 K/ul (4.8-10.8) H 02/22/22 08:17 RBC 4.69 M/uL (4.63-6.08) 02/22/22 08:17 Hgb 14.9 g/dl (14.0-18.0) 02/22/22 08:17 Hct 44.1 % (40.1-51.0) 02/22/22 08:17 MCV 94.0 fL (80.0-100.0) 02/22/22 08:17 MCH 31.8 pg (25.0-34.0) 02/22/22 08:17 MCHC 33.8 g/dL (32.0-36.0) 02/22/22 08:17 RDW Std Deviation 42.6 fL (36.4-46.3) 02/22/22 08:17 RDW Coeff of Kj 12.3 % (11.5-14.5) 02/22/22 08:17 Plt Count 370 K/uL (130-400) 02/22/22 08:17 MPV 9.3 fL (9.4-12.4) L 02/22/22 08:17 Immature Gran % (Auto) 0.6 % 02/22/22 08:17 Neut % (Auto) 81.1 % 02/22/22 08:17 Lymph % (Auto) 11.4 % 02/22/22 08:17 [place] % (Auto) 6.2 % 02/22/22 08:17 Eos % (Auto) 0.4 % 02/22/22 08:17 Baso % (Auto) 0.3 % 02/22/22 08:17 Neut # (Auto) 12.53 K/uL (1.4-6.5) H 02/22/22 08:17 Lymph # (Auto) 1.77 K/uL (1.2-3.4) 02/22/22 08:17 [place] # (Auto) 0.96 K/uL (0.24-0.82) H 02/22/22 08:17 Eos # (Auto) 0.06 K/uL (0-0.50) 02/22/22 08:17 Baso # (Auto) 0.05 K/uL (0-0.2) 02/22/22 08:17 Immature Gran # (Auto) 0.09 K/uL (0.00-0.02) H 02/22/22 08:17 PT 11.8 Seconds (9.0-12.0) 02/21/22 11:44 INR 1.1 (0.9-1.1) 02/21/22 11:44 APTT 35.4 Seconds (21.0-31.0) H 02/21/22 11:44 PTT Ratio 1.3 02/21/22 11:44 Sodium 138 mmol/L (136-145) 02/22/22 08:17 Potassium 4.6 mmol/L (3.5-5.1) 02/22/22 08:17 Chloride 101 mmol/L (98-107) 02/22/22 08:17 Carbon Dioxide 30 mmol/L (21-32) 02/22/22 08:17 Anion Gap 7 (3-11) 02/22/22 08:17 BUN 10 mg/dl (6-23) 02/22/22 08:17 Creatinine 0.81 mg/dl (0.6-1.4) 02/22/22 08:17 Est Cr Clr Drug Dosing 161.0 ml/min 02/22/22 08:17 Est GFR ( Amer) 149.3 ml/min 02/22/22 08:17 Est GFR (Non-Af Amer) 128.8 ml/min 02/22/22 08:17 BUN/Creatinine Ratio 12.3 (10-20) 02/22/22 08:17 Glucose 89 mg/dl (70-99(Fasting)) 02/22/22 08:17 Calcium 10.2 mg/dl (8.5-10.1) H 02/22/22 08:17 Total Bilirubin 0.8 mg/dl (0.2-1.0) 02/21/22 11:44 AST 21 U/L (13-39) 02/21/22 11:44 ALT 30 U/L (7-52) 02/21/22 11:44 Alkaline Phosphatase 81 U/L (34-104) 02/21/22 11:44 Troponin I High Sens 3.6 pg/ml (0-20) 02/21/22 11:44 C-Reactive Protein 23.61 mg/dl (0-0.5) H 02/22/22 08:17 Total Protein 7.5 gm/dl (6.0-8.3) 02/21/22 11:44 Albumin 4.0 gm/dl (3.4-5.0) 02/21/22 11:44 Globulin 3.5 gm/dl (2.5-4.0) 02/21/22 11:44 Albumin/Globulin Ratio 1.1 (0.9-2) 02/21/22 11:44 Urine Color Yellow 02/21/22 19:47 Urine Appearance Clear (Clear) 02/21/22 19:47 Urine pH 7.5 (4.5-7.5) 02/21/22 19:47 Ur Specific [place] 1.008 (1.000-1.030) 02/21/22 19:47 Urine Protein Negative (Negative) 02/21/22 19:47 Urine Glucose (UA) Negative (Negative) 02/21/22 19:47 Urine Ketones Negative (Negative) 02/21/22 19:47 Urine Blood Negative (Negative) 02/21/22 19:47 Urine Nitrite Negative (Negative) 02/21/22 19:47 Urine Bilirubin Negative (Negative) 02/21/22 19:47 Urine Urobilinogen Negative (Negative) 02/21/22 19:47 Ur Leukocyte Esterase Negative (Negative) 02/21/22 19:47 Adenovirus (PCR) Not Detected (NotDetected) 02/21/22 11:46 B. pertussis DNA (PCR) Not Detected (NotDetected) 02/21/22 11:46 B.parapertussis DNA PCR Not Detected (NotDetected) 02/21/22 11:46 C. pneumoniae DNA (PCR) Not Detected (NotDetected) 02/21/22 11:46 Coronavirus OC43 (PCR) Not Detected (NotDetected) 02/21/22 11:46 Coronavirus HKU1 (PCR) Not Detected (NotDetected) 02/21/22 11:46 Coronavirus 229E (PCR) Not Detected (NotDetected) 02/21/22 11:46 SARS-CoV-2 (PCR) Not Detected (NotDetected) 02/21/22 11:46 Coronavirus NL63 (PCR) Not Detected (NotDetected) 02/21/22 11:46 Human Metapneumovir PCR Not Detected (NotDetected) 02/21/22 11:46 Influenza Type A (PCR) Not Detected (NotDetected) 02/21/22 11:46 Influenza Type B (PCR) Not Detected (NotDetected) 02/21/22 11:46 M. pneumoniae (PCR) Not Detected (NotDetected) 02/21/22 11:46 Parainfluenza 1 (PCR) Not Detected (NotDetected) 02/21/22 11:46 Parainfluenza 2 (PCR) Not Detected (NotDetected) 02/21/22 11:46 Parainfluenza 3 (PCR) Not Detected (NotDetected) 02/21/22 11:46 Parainfluenza 4 (PCR) Not Detected (NotDetected) 02/21/22 11:46 RSV (PCR) Not Detected (NotDetected) 02/21/22 11:46 Entero/Rhino (PCR) Not Detected (NotDetected) 02/21/22 11:46 Impressions Chest CTA 02/21/22 11:19 CT ANGIOGRAM OF THE CHEST CLINICAL HISTORY: Cough. Right-sided chest wall pain. Tachycardia. COMPARISON STUDY: Chest x-ray dated 02/10/2022. TECHNIQUE: Following the IV administration of 107 cc of Optiray 320, CT angiogram of the chest was performed from the upper abdomen to the thoracic inlet utilizing the pulmonary embolus protocol. Images are reviewed in the axial, sagittal, and coronal planes. 3-D MIPS images are created and assessed. IV contrast was administered without complication. A dose lowering technique was utilized adhering to the principles of ALARA. The examination is degraded by motion artifact. CT DOSE: 405.58 mGy.cm FINDINGS: Thyroid: Imaged portions of the thyroid gland are normal in size and attenuation. Thoracic aorta: The thoracic aorta is normal in caliber and demonstrates standard 3-vessel arch anatomy. No dissection is seen. Pulmonary vasculature: The pulmonary trunk is normal in caliber. There are no filling defects identified in main, lobar, or proximal segmental pulmonary branches to suggest pulmonary embolus. Evaluation of the segmental and subsegmental branches is degraded by motion artifact. Heart: The heart is normal in size and without pericardial effusion. Lungs and pleural spaces: The trachea is clear. Secretions/debris fills the right lower lobe airways. There is dense right lower lobe airspace consolidation. The right middle and upper lobes are clear. Secretions/debris are also seen in the left lower lobe airways and there are is minimal left basilar consolidation. No pleural effusion is identified Mediastinum: There is no mediastinal lymphadenopathy. Pauly: There are mildly enlarged right hilar lymph nodes which measure up to 11 mm in short axis. Axillae: There is no axillary lymphadenopathy. Upper abdomen: Partially visualized upper abdominal viscera is within normal limits. Skeletal structures: No lytic or blastic bony lesions are seen. IMPRESSION: 1. There is no evidence of pulmonary embolus in the main, lobar, or segmental pulmonary arteries. 2. There is dense airspace consolidation in the right lower lobe, as well as minimal dependent consolidative change at the left lung base. There are secretions/debris within the lower lobe airways bilaterally, right significantly greater than left. The appearance is typical for pneumonia/aspiration pneumonitis. Clinical correlation will be required and radiographic follow-up to resolution is recommended. 3. No pleural effusion is seen. 4. Mildly enlarged right hilar lymph nodes are likely reactive. ACT 112: Negative or not required by law. Electronically signed by: Cortes Velez M.D. 02/21/2022 1:23 PM Resident Activity Tracking Resident Involvement: Resident Care Provided Care Provided: Adult Hospital Medicine
[2022-02-22 08:57] LABS: BUN Creatinine Ratio 12.3 (10-20); C Reactive Protein 23.61 mg/dl (0-0.5); Calcium 10.2 mg/dl (8.5-10.1); Est GFR (African American) 149.3 ml/min; Est GFR (Non-African American) 128.8 ml/min; Potassium 4.6 mmol/L (3.5-5.1)
[2022-02-22] MEDS ORDERED: levoFLOXacin/D5W 750 MG/150 ML BAG IV SCH (11:15)
--- NOTE | 2022-02-22 11:26 | Billing Data ---
Date of Service February 22, 2022 Coding Level of Care Code 33411 Initial Inpt Care Lvl 3
[2022-02-22] MEDS: AZITHROMYCIN 250 MG TAB PO SCH (12:03)
--- NOTE | 2022-02-22 13:08 | Medical Student Progress Note ---
Date of Service February 22, 2022 Assessment & Plan (1) Pneumonia: Plan: 21 yo M with no significant PMH admitted for worsening cough with associated R chest pain. Community acquired bacterial pneumonia -WBC 18.7 on admission, downtrend to 15.5 -CRP 24, procalcitonin 0.2 (procalcitonin collected after abx administration), UA negative -CXR- negative for acute process -Chest CTA- dense airspace consolidation of R lower lobe, minimal consolidative change at L base, secretions/debris in lower lobe airways b/l R > L -Sputum cultures, BCx pending, RVP negative -Suspect non-necrotizing community acquired vs aspiration pneumonia -Continue Unasyn from admission, added azithromycin 500 mg daily for atypical coverage including Legionella -Pulmonology consulted -Supportive care with hypertonic saline BID -Recommend 7-10 days of abx- transition to Augmentin when appropriate -Currently day 2 of abx -No need for bronchoscopy at present -Recommend repeat chest CT in 1 month -possible DC tomorrow FENGI: Regular Code status: Full DVT ppx: Ambulation, low-risk Isolation: None Dispo: Medical/surgical Admission and Anticipated Discharge Date Admission Date: February 21, 2022 Subjective today pt feels improved but still sob with increased strenous activity. able to ambulate and go to the bathroom w/o sob. Cough less frequent and no longer sputum. no current fever, sweats or chills. no ear ache but but did have fullness yesterday. still feels weak. decreased pleuritc chest pain on the right. Review of Systems Review of Systems: as per hpi Physical Exam Constitutional: WD/WN, vitals as above Eyes: PERRL, conjunctivae normal, anicteric sclerae ENMT: external ear and nose normal, oropharynx normal Respiratory: decreased breathsounds b/l; inspiratory stridor Cardiovascular: RRR, no murmur, no edema Skin: perspiration Neurologic: awake Psychiatric: A+Ox3, euthymic affect Results & Data ([facility]) Vital Signs (Past 12 Hours) Vital Signs Temp Pulse Resp BP Pulse Ox O2 Del Method 02/22/22 05:56 37.1 C 79 16 124/72 98 Room Air
[2022-02-22] MEDS ORDERED: ALBUT/IPRATROP 3MG/0.5MG NEB 3 ML VIAL NEB STA (14:34)
[2022-02-22] MEDS ORDERED: SODIUM CHLOR 7% 4 ML NEB NEB ONE (14:34)
[2022-02-22] MEDS: SODIUM CHLOR 7% 4 ML NEB NEB SCH (19:15)
[2022-02-22] MEDS: ALBUT/IPRATROP 3MG/0.5MG NEB 3 ML VIAL NEB SCH (19:15)
[2022-02-23] MEDS: AMPICILLIN/SULBACTAM SOD 3,000 MG in 0.9 % SODIUM CHLORIDE 100 ML IV SCH (01:58)
[2022-02-23] MEDS: SODIUM CHLOR 7% 4 ML NEB NEB SCH (06:58)
[2022-02-23] MEDS: ALBUT/IPRATROP 3MG/0.5MG NEB 3 ML VIAL NEB SCH (06:58)
[2022-02-23] MEDS ORDERED: AMOXICILLIN/CLAVULANATE 875 MG TAB PO SCH (08:00)
[2022-02-23 08:17] LABS: Hematocrit (blood only) 44.6 % (40.1-51.0); Hemoglobin 14.9 g/dl (14.0-18.0); Mean Corpuscular Hemoglobin 31.6 pg (25.0-34.0); Mean Corpuscular Hgb Conc 33.4 g/dL (32.0-36.0); Mean Corpuscular Volume 94.5 fL (80.0-100.0); Mean Platelet Volume 9.3 fL (9.4-12.4); Platelet Count 361 K/uL (130-400); RDW Coefficient of Variation 12.1 % (11.5-14.5); RDW Standard Deviation 42.2 fL (36.4-46.3); Red Blood Count 4.72 M/uL (4.63-6.08)
[2022-02-23 08:38] LABS: Anion Gap 9 (3-11); BUN Creatinine Ratio 12.7 (10-20); Blood Urea Nitrogen 10 mg/dl (6-23); Calcium 10.2 mg/dl (8.5-10.1); Carbon Dioxide 27 mmol/L (21-32); Chloride 103 mmol/L (98-107); Creatinine Clr Calc Pharmacy 165.1 ml/min; Est GFR (African American) > 150.0 ml/min; Est GFR (Non-African American) 130.2 ml/min; Glucose 84 mg/dl (70-99(Fasting)); Sodium 139 mmol/L (136-145)
[2022-02-23] MEDS: AZITHROMYCIN 250 MG TAB PO SCH (09:36)
--- NOTE | 2022-02-23 10:49 | Discharge Summary ---
Date of Service February 23, 2022 Admission HPI Per Admitting Provider 21 yo male being admitted with a 2 and a half week history of upper respiratory illness. Patient reports this began with generalized malaise, rhinorrhea, cough that did not improve over the next few days. Patient went to see an Urgent Care Clinic and was told to have a community acquired pneumonia. Patient treated with amoxicillin, and he did not improve over the course of the next few days. Patient was then seen in the ER and had a negative chest x ray, with normal vital signs and on room air. He was discharged on corticosteroids. Patient did nto improve, and then over past 2 days had right sided chest pain, worsening with deep inspiration. Images showed Right lower lobe pneumonia: concern over possible necrosis. Admission Exam Per Admitting Provider Constitutional: WD/WN, vitals as above Eyes: PERRL, conjunctivae normal, anicteric sclerae ENMT: external ear and nose normal, oropharynx normal Neck: trachea midline, no thyromegaly Respiratory: normal respiratory effort and able to speak in complete sentences Auscultation: + diminished lung sounds (on right lower lung donaldson) Cardiovascular: RRR, no murmur, no edema Gastrointestinal (Abdomen): normal bowel sounds, soft, nontender, no hepatosplenomegaly Musculoskeletal: no cyanosis or clubbing, extremities motor strength 5/5 Skin: no rashes, warm and dry Neurologic: PERRL, EOMI, accommodation nl, no face palsy, no dysarthria Psychiatric: A+Ox3, euthymic affect Lymphatic: no cervical or axillary lymphadenopathy Principal Diagnosis Community acquired pneumonia Discharge Exam Constitutional: No acute distress, laying in bed HEENT: Moist mucous membranes.Clear oropharynx without exudate or erythema Neck: Supple without lymphadenopathy or thyromegaly. Trachea midline Cardiac: RRR, normal S1 and S2, no murmurs Lungs: CTAB, no overt wheezes or crackles noted Abdomen: Soft, nontender, and nondistended. Skin: Dry, no rashes, warm Discharge Data Allergies Allergy/AdvReac Type Severity Reaction Status Date / Time No Known Allergies Allergy Verified 02/21/22 14:49 Consultations 02/21/22 14:46 ED Decision to Admit Stat 02/22/22 06:45 Consult Pulmonology Routine Ordered Studies 02/21/22 11:19 CT angio chest PE protocol Stat Hospital Course (1) Pneumonia: Plan 21 yo M with no significant PMH admitted for worsening cough with associated R chest pain. Community acquired bacterial pneumonia -WBC 18.7 on admission, resolved to 9.7 on day of discharge -CRP 24, procalcitonin 0.2 (procalcitonin collected after abx administration), UA negative -CXR- negative for acute process -Chest CTA- dense airspace consolidation of R lower lobe, minimal consolidative change at L base, secretions/debris in lower lobe airways b/l R > L -Sputum culture preliminary- normal bere, BCx negative, RVP negative -Suspect non-necrotizing community acquired vs aspiration pneumonia -Treated with Unasyn on admission, azithromycin added on 02/22 for atypical coverage -Unasyn on admission transitioned to Augmentin on day of discharge -Pt discharged home with Augmentin 875 mg BID and azithromycin 500 mg daily- to complete 10 day total course of abx -Tessalon Perles prescribed for cough relief PRN -Pt will have f/u with pulmonology as outpatient -F/u CXR in 2 weeks -Repeat chest CT in 4 weeks Total Time Total Time Spent Total Time Spent (In Minutes): 30 Discharge Plan Discharge Items Patient Disposition: Home - Self-Care Reason For Visit: PNEUMONIA Discharge Diagnosis: Community acquired pneumonia Condition on Discharge: Good Activity: Resume your previous activity Non-emergency contact: Primary Care Provider and Stock Manager Call non-emergency contact if: you have any medication questions, your symptoms worsen, your pain is worsening and you have a fever Follow-up/Referrals: Joby Gutiérrez MD [Physician] - [facility] [Primary Care Provider] - Diet: Regular Addtl Attending Provider Instructions: You were admitted to the hospital for pneumonia. This is a bacterial infection of your lungs. We treated your pneumonia with antibiotics and you responded well to the treatment, not requiring oxygen during your stay. As you recover, try not to engage in too much strenuous activity until you finish your antibiotics. You can gradually return to your usual lifting/cardio regimen as your body tolerates, meaning no shortness of breath or excessive fatigue. A discharge summary will be sent to [facility] to ensure continuity of care. Please bring this discharge summary with you to your next office appointment so that your provider can review it at that time. Follow-up appointments: You will have a follow-up with the pulmonology clinic. They will call you to set this up. Please get a chest X-ray done in 2 weeks. The order for this was placed and all you must do is come to the hospital 2 weeks from now to get the X-ray done. Medications: Your medication list has been reviewed and reconciled upon discharge to ensure accuracy and continuity of care. An updated list of all your medications is included with your hospital discharge paperwork. Please review this list closely, and make note of any changes. We sent two medications to the pharmacy called Augmentin and azithromycin to the pharmacy. These are both antibiotics intended to treat the remainder of your pneumonia. Please take Augmentin 875 mg twice a day (roughly 12 hours apart) for the next 7 days. Please take azithromycin 500 mg once a day for the next 7 days as well (in the morning). These medications can cause some stomach upset, so we recommend taking them with food. I have also sent Tessalon Perles to help with cough relief. CONTACT US if you experience any of the following: Fever Shortness of breath Chest pain Nausea/vomiting Abdominal pain Fatigue Difficulty following your treatment plan, or difficulty taking medications CALL 911 OR GO TO THE EMERGENCY DEPARTMENT if you experience any of the following: Sudden, severe abdominal pain or nausea/vomiting Severe chest pain, or chest pain that radiates (moves) to your jaw or arm Sudden, severe shortness of breath or difficulty breathing Thank you for allowing us to participate in your care. Pending Studies at Discharge: No Stand-Alone Forms: My [facility] [employer], Work/School Release Medications and DC Order Prescriptions: New amoxicillin-pot clavulanate 875-125 mg tablet 1 tab PO BID 7 Days Qty: 14 0RF azithromycin 500 mg tablet 500 mg PO DAILY 7 Days Qty: 7 0RF benzonatate 100 mg capsule 100 mg PO TID Qty: 14 0RF Discharge Orders: Discharge Order (Routine); Ordered 02/23/22 Ordered By: Theron Ivan/Other Patient Handouts: ED Pneumonia (Adult) Admission Data Admit Date/Time: 02/21/22 15:05 Attending Provider: Ale Huitron Admit Provider: Keivn Alex Primary Care Provider: [place],[facility] Other Providers: Kevin Alex ; Joby Gutiérrez Other Interventions: Discharge Summary Assessment (RN) Last Done: 02/23/22 10:52 Supervising Physician Co-Signing Physician Notes Resident Physician Supervision Note: I independently interviewed and examined the patient and verified the fernando history and physical, reviewed labs and image studies and agree with resident findings and care plan. Resident Activity Tracking Resident Involvement: Resident Care Provided Care Provided: Adult Hospital Medicine
== END 2022-02-23 11:20 | disposition home or self-care (01) | DRG 195 ==
LOC: ED 10:44 → SUATTDRO 15:05 → 3W 15:05